=== PATIENT | female | born 2000 | race Caucasian/White ===

== ENCOUNTER 2022-01-16 16:25 | Emergency (ER) | payer MEDICAID ==
[2022-01-16] MEDS: Albuterol/Ipratropium 3.0-0.5 MG/3 ML Neb Soln NEB ONE ×3 (16:35→17:24)
[2022-01-16] MEDS: methylPREDNISolone Sodium Succinate 125 MG/2 ML SDV IM ONE (16:48)
[2022-01-16] MEDS: Albuterol 8 GM Inhaler INH ONE (17:24)
== END 2022-01-16 18:31 | disposition home or self-care (01) ==
LOC: MW.ED 16:25
DX: J45.901 Unspecified asthma with (acute) exacerbation (principal); Z88.8 Allergy status to other drugs, medicaments and biological substances
CPT/HCPCS: 96372; 99284; J2930; 99283; A9270-GY; J7620-GY

== ENCOUNTER 2022-02-15 22:26 | Emergency (ER) | payer MEDICAID, OTHER ==
[2022-02-15] MEDS ORDERED: Albuterol/Ipratropium 3.0-0.5 MG/3 ML Neb Soln NEB ONE (23:28)
[2022-02-15] MEDS ORDERED: methylPREDNISolone Sodium Succinate 125 MG/2 ML SDV IM ONE (23:28)
== END 2022-02-16 00:28 | disposition home or self-care (01) ==
LOC: MW.ED 22:26
DX: J38.3 Other diseases of vocal cords (principal); Z91.018 Allergy to other foods
CPT/HCPCS: 96372; 99283; J2930; J7620-GY

== ENCOUNTER 2022-03-04 01:54 | Emergency (ER) | payer MEDICAID ==
[2022-03-04] MEDS ORDERED: predniSONE 20 MG Tab PO STA (02:39)
== END 2022-03-04 03:08 | disposition home or self-care (01) ==
LOC: MW.ED 01:54
DX: T78.40XA Allergy, unspecified, initial encounter (principal); F17.210 Nicotine dependence, cigarettes, uncomplicated; Z88.8 Allergy status to other drugs, medicaments and biological substances
CPT/HCPCS: 99283; A9270

== ENCOUNTER 2022-04-01 10:54 | Emergency (ER) | payer SELFPAY | END 2022-04-01 11:15 | disposition home or self-care (01) | LOC: MW.ED 10:54 | DX: Z00.00 Encounter for general adult medical examination without abnormal findings (principal); Z91.018 Allergy to other foods | CPT/HCPCS: 99283 ==

== ENCOUNTER 2022-04-06 17:45 | Emergency (ER) | payer SELFPAY | END 2022-04-06 20:55 | disposition left against medical advice (07) | LOC: MW.ED 17:45 | DX: Z53.21 Procedure and treatment not carried out due to patient leaving prior to being seen by health care provider (principal) ==

== ENCOUNTER 2022-04-13 08:14 | Emergency (ER) | payer SELFPAY | END 2022-04-13 10:06 | disposition home or self-care (01) | LOC: MW.ED 08:14 | DX: O99.341 Other mental disorders complicating pregnancy, first trimester (principal); F41.9 Anxiety disorder, unspecified; O99.331 Smoking (tobacco) complicating pregnancy, first trimester; F17.210 Nicotine dependence, cigarettes, uncomplicated; Z76.5 Malingerer [conscious simulation]; Z3A.00 Weeks of gestation of pregnancy not specified | CPT/HCPCS: 99283 ==

== ENCOUNTER 2022-04-29 07:33 | Emergency (ER) | payer SELFPAY ==
[2022-04-29] MEDS ORDERED: Albuterol/Ipratropium 3.0-0.5 MG/3 ML Neb Soln NEB ONE (07:45)
== END 2022-04-29 09:10 | disposition home or self-care (01) ==
LOC: MW.ED 07:33
DX: R06.02 Shortness of breath (principal); F17.210 Nicotine dependence, cigarettes, uncomplicated; Z88.8 Allergy status to other drugs, medicaments and biological substances
CPT/HCPCS: 99283; 99285; J7620-GY

== ENCOUNTER 2022-05-09 06:28 | Emergency (ER) | payer MEDICAID ==
[2022-05-09] MEDS ORDERED: Sodium Chloride 0.9% 10 ML Syringe FLUSH PRN (06:47)
[2022-05-09] MEDS ORDERED: Sodium Chloride 0.9% 2.5 ML Syringe FLUSH PRN (06:47)
[2022-05-09] MEDS ORDERED: Sodium Chloride 0.9% 1,000 ML IV ONE (06:47)
[2022-05-09 07:15] LABS: POTASSIUM,K 3.6 mmol/L (3.5-5.1)
[2022-05-09] MEDS ORDERED: Ketorolac 30 MG/ML SDV IVPUSH ONE (09:04)
[2022-05-09] MEDS ORDERED: fentaNYL 50 MCG/ML SDV IVPUSH ONE (09:34)
[2022-05-09] MEDS ORDERED: Acetaminophen/HYDROcodone 325-10 MG Tab PO ONE (10:00)
== END 2022-05-09 10:16 | disposition home or self-care (01) ==
LOC: MW.ED 06:28
DX: O03.4 Incomplete spontaneous abortion without complication (principal); Z88.8 Allergy status to other drugs, medicaments and biological substances
CPT/HCPCS: 36415; 76817; 76817-26; 80053; 84702; 85025; 86900; 86901; 96374; 96375; 99284-25; A9270-GY; J1885; J3010; J3490; J7030

== ENCOUNTER 2022-06-01 16:49 | Emergency (ER) | payer MEDICAID ==
[2022-06-01 21:04] LABS: CARBON DIOXIDE,CO2 27.8 mmol/L (21.0-32.0); POTASSIUM,K 3.7 mmol/L (3.5-5.1)
== END 2022-06-01 22:14 | disposition home or self-care (01) ==
LOC: MW.ED 16:49
DX: O02.1 Missed abortion (principal); Z91.018 Allergy to other foods
CPT/HCPCS: 36415; 76830; 76830-26; 80053; 81001; 84702; 85025; 87086; 99283; 99284

== ENCOUNTER 2022-07-06 23:33 | Emergency (ER) | payer OTHER | END 2022-07-07 01:40 | disposition left against medical advice (07) | LOC: MW.ED 23:33 | DX: T78.1XXA Other adverse food reactions, not elsewhere classified, initial encounter (principal); Z53.21 Procedure and treatment not carried out due to patient leaving prior to being seen by health care provider ==

== ENCOUNTER 2022-08-06 19:57 | Emergency (ER) | payer MEDICAID ==
[2022-08-06 20:31] LABS: BASOPHILS ABSOLUTE AUTO 0.1 K/uL (0.0-0.1); BASOPHILS PERCENT AUTO 0.7 % (0.0-1.5); EOSINOPHILS ABSOLUTE AUTO 0.9 K/uL (0.0-0.7); EOSINOPHILS PERCENT AUTO 7.7 % (0.0-7.0); HEMATOCRIT 37.5 % (36.0-46.0); HEMOGLOBIN 12.7 g/dL (12.0-16.0); LYMPHOCYTES ABSOLUTE AUTO 3.3 K/uL (0.6-2.4); LYMPHOCYTES PERCENT AUTO 27.6 % (16.0-40.0); MEAN CORPUSCULAR HEMOGLOBIN 27.9 pg (27.0-32.0); MEAN CORPUSCULAR HGB CONC 33.9 g/dL (31.0-37.0); MEAN CORPUSCULAR VOLUME 82.2 fL (80.0-98.0); MONOCYTES ABSOLUTE AUTO 0.5 K/uL (0.0-0.8); MONOCYTES PERCENT AUTO 4.3 % (0.0-15.0); NEUTROPHILS ABSOLUTE AUTO 7.2 K/uL (1.4-5.7); NEUTROPHILS PERCENT AUTO 59.7 % (48.0-80.0); NRBC ABSOLUTE 0 K/uL; PLATELET COUNT,PLT 306 K/uL (150-400); RED BLOOD CELL COUNT 4.56 M/uL (4.30-5.90); WHITE BLOOD CELL COUNT,WBC 12.06 K/uL (4.0-11.0)
[2022-08-06] MEDS ORDERED: Cyclobenzaprine 10 MG Tab PO ONE (20:33)
[2022-08-06] MEDS ORDERED: Ketorolac 30 MG/ML SDV IM ONE (20:33)
[2022-08-06 21:03] LABS: A/G RATIO 1.1 (0.9-1.6); ALANINE AMINOTRANSFERASE,ALT 32 IU/L (14-63); ALBUMIN 3.7 g/dL (3.4-5.0); ALKALINE PHOSPHATASE 90 U/L (46-116); ASPARTATE AMNIOTRANSFERASE,AST 14 IU/L (15-37); BILIRUBIN TOTAL 0.4 mg/dL (0.2-1.0); BLOOD UREA NITROGEN,BUN 3 mg/dL (7.0-18.0); CALCIUM 8.7 mg/dL (8.5-10.1); CARBON DIOXIDE,CO2 26.5 mmol/L (21.0-32.0); CHLORIDE,CL 105 mmol/L (98-107); CREATININE 0.7 mg/dL (0.6-1.0); EST CRCL DRUG DOSING (CG) 91.32 mL/min; ESTIMATED GFR 126 mL/min (>60); GLUCOSE RANDOM 111 mg/dL (74-106); POTASSIUM,K 3.5 mmol/L (3.5-5.1); PROTEIN TOTAL,TP 7.1 g/dL (6.4-8.2); SODIUM,NA 143 mmol/L (136-145)
== END 2022-08-06 21:49 | disposition home or self-care (01) ==
LOC: MW.ED 19:57
DX: R07.89 Other chest pain (principal)
CPT/HCPCS: 36415; 71046; 80053; 84484; 84703; 85025; 93005; 96372; 99285; A9270; J1885; 93010; 99283

== ENCOUNTER 2022-08-11 12:46 | Emergency (ER) | payer SELFPAY | END 2022-08-11 15:17 | disposition home or self-care (01) | LOC: MW.ED 12:46 | DX: J45.909 Unspecified asthma, uncomplicated (principal); Z76.0 Encounter for issue of repeat prescription; Z88.8 Allergy status to other drugs, medicaments and biological substances | CPT/HCPCS: 99281; 99282 ==

== ENCOUNTER 2022-08-23 00:59 | Emergency (ER) | payer MEDICAID | END 2022-08-23 02:54 | disposition left against medical advice (07) | LOC: MW.ED 00:59 | DX: Z53.21 Procedure and treatment not carried out due to patient leaving prior to being seen by health care provider (principal) ==

== ENCOUNTER 2022-09-15 12:41 | Emergency (ER) | payer MEDICAID | END 2022-09-15 13:14 | disposition home or self-care (01) | LOC: MW.ED 12:41 | DX: Z76.0 Encounter for issue of repeat prescription (principal); J38.3 Other diseases of vocal cords; R06.02 Shortness of breath; Z72.0 Tobacco use; Z91.018 Allergy to other foods | CPT/HCPCS: 99281; 99283 ==

== ENCOUNTER 2022-10-03 21:53 | Emergency (ER) | payer MEDICAID | END 2022-10-03 22:28 | disposition home or self-care (01) | LOC: MW.ED 21:53 | DX: Z76.0 Encounter for issue of repeat prescription (principal); Z91.018 Allergy to other foods | CPT/HCPCS: 99281; 99283 ==

== ENCOUNTER 2022-10-27 11:14 | Emergency (ER) | payer MEDICAID | END 2022-10-27 12:08 | disposition home or self-care (01) | LOC: MW.ED 11:14 | DX: H66.92 Otitis media, unspecified, left ear (principal); J02.9 Acute pharyngitis, unspecified; F17.210 Nicotine dependence, cigarettes, uncomplicated; Z88.8 Allergy status to other drugs, medicaments and biological substances | CPT/HCPCS: 99282; 99283 ==

== ENCOUNTER 2022-11-03 15:33 | Emergency (ER) | payer MEDICAID | END 2022-11-03 19:59 | disposition home or self-care (01) | LOC: MW.ED 15:33 | DX: Z48.02 Encounter for removal of sutures (principal) | CPT/HCPCS: 99281 ==

== ENCOUNTER 2022-11-15 11:09 | Emergency (ER) | payer MEDICAID ==
[2022-11-15] MEDS ORDERED: Ondansetron 4 MG/2 ML SDV IVPUSH ONE (11:23)
[2022-11-15] MEDS ORDERED: Sodium Chloride 0.9% 1,000 ML IV ONE (11:23)
[2022-11-15] MEDS ORDERED: Dicyclomine 10 MG Cap PO ONE (11:23)
[2022-11-15 11:54] LABS: BASOPHILS ABSOLUTE AUTO 0.1 K/uL (0.0-0.1); BASOPHILS PERCENT AUTO 0.6 % (0.0-1.5); EOSINOPHILS PERCENT AUTO 7.1 % (0.0-7.0); HEMATOCRIT 39.7 % (36.0-46.0); HEMOGLOBIN 13.1 g/dL (12.0-16.0); LYMPHOCYTES ABSOLUTE AUTO 2.7 K/uL (0.6-2.4); LYMPHOCYTES PERCENT AUTO 18.4 % (16.0-40.0); MEAN CORPUSCULAR HEMOGLOBIN 27.3 pg (27.0-32.0); MEAN CORPUSCULAR VOLUME 82.9 fL (80.0-98.0); MONOCYTES ABSOLUTE AUTO 0.9 K/uL (0.0-0.8); MONOCYTES PERCENT AUTO 6.1 % (0.0-15.0); NEUTROPHILS ABSOLUTE AUTO 9.9 K/uL (1.4-5.7); NEUTROPHILS PERCENT AUTO 67.8 % (48.0-80.0); NRBC ABSOLUTE 0 K/uL; PLATELET COUNT,PLT 355 K/uL (150-400); RED BLOOD CELL COUNT 4.79 M/uL (4.30-5.90); WHITE BLOOD CELL COUNT,WBC 14.53 K/uL (4.0-11.0)
[2022-11-15 12:21] LABS: APPEARANCE,URINE CLOUDY; COLOR,URINE YELLOW; GLUCOSE,URINE NEGATIVE (NEGATIVE); KETONES,URINE 15 mg/dL (NEGATIVE); LEUKOCYTE ESTERASE,URINE TRACE (NEGATIVE); NITRITE,URINE NEGATIVE (NEGATIVE); OCCULT BLOOD,URINE TRACE-INTACT (NEGATIVE); PH,URINE 5.5 (5.0-8.0); PROTEIN,URINE NEGATIVE (NEGATIVE); UROBILINOGEN,URINE 0.2 EU/dL (<2.0)
[2022-11-15 12:28] LABS: BILIRUBIN,URINE MODERATE (NEGATIVE)
[2022-11-15 12:28] LABS: A/G RATIO 0.9 (0.9-1.6); ALBUMIN 3.7 g/dL (3.4-5.0); BILIRUBIN TOTAL 0.7 mg/dL (0.2-1.0); CARBON DIOXIDE,CO2 24.2 mmol/L (21.0-32.0); CREATININE 0.8 mg/dL (0.6-1.0); EST CRCL DRUG DOSING (CG) 79.9 mL/min; POTASSIUM,K 3.8 mmol/L (3.5-5.1); PROTEIN TOTAL,TP 7.7 g/dL (6.4-8.2)
[2022-11-15 12:42] LABS: BACTERIA,URINE MANY (NEGATIVE); EPITHELIAL CELLS,URINE MANY (NONE-FEW); HYALINE CASTS,URINE FEW (0-2/LPF); MUCUS,URINE MANY (NONE-MOD); RBC,URINE 0-3 (0-2/HPF); SQUAMOUS EPITHELIAL CELLS,UR MANY; WBC,URINE 0-2 (0-5/HPF)
== END 2022-11-15 16:10 | disposition home or self-care (01) ==
LOC: MW.ED 11:09
DX: R19.7 Diarrhea, unspecified (principal); R11.0 Nausea; R10.9 Unspecified abdominal pain; Z91.048 Other nonmedicinal substance allergy status
CPT/HCPCS: 36415; 74176; 74176-26; 80053; 81001; 81025; 85025; 96361; 96374; 99283; 99284-25; A9270-GY; J2405; J7030

== ENCOUNTER 2022-11-22 21:13 | Emergency (ER) | payer MEDICAID | END 2022-11-23 00:06 | disposition home or self-care (01) | LOC: MW.ED 21:13 | DX: K64.8 Other hemorrhoids (principal); Z91.09 Other allergy status, other than to drugs and biological substances | CPT/HCPCS: 99282; 99283 ==

== ENCOUNTER 2022-12-01 16:04 | Emergency (ER) | payer MEDICAID | END 2022-12-01 17:03 | disposition home or self-care (01) | LOC: MW.ED 16:04 | DX: K92.1 Melena (principal); F17.210 Nicotine dependence, cigarettes, uncomplicated; Z79.899 Other long term (current) drug therapy; Z88.8 Allergy status to other drugs, medicaments and biological substances | CPT/HCPCS: 99282; 99283 ==

== ENCOUNTER 2022-12-12 17:01 | Emergency (ER) | payer MEDICAID ==
[2022-12-12] MEDS ORDERED: Albuterol/Ipratropium 3.0-0.5 MG/3 ML Neb Soln NEB ONE (17:02)
== END 2022-12-13 00:22 | disposition left against medical advice (07) ==
LOC: MW.ED 17:01
DX: Z53.21 Procedure and treatment not carried out due to patient leaving prior to being seen by health care provider (principal)

== ENCOUNTER 2022-12-26 12:10 | Emergency (ER) | payer MEDICAID | END 2022-12-26 12:49 | disposition home or self-care (01) | LOC: MW.ED 12:10 | DX: Z76.0 Encounter for issue of repeat prescription (principal); Z91.048 Other nonmedicinal substance allergy status | CPT/HCPCS: 99281; 99283 ==

== ENCOUNTER 2022-12-30 13:08 | Emergency (ER) | payer MEDICAID | END 2022-12-30 14:22 | disposition home or self-care (01) | LOC: MW.ED 13:08 | DX: R21 Rash and other nonspecific skin eruption (principal); Z79.899 Other long term (current) drug therapy; Z88.8 Allergy status to other drugs, medicaments and biological substances | CPT/HCPCS: 99282 ==

== ENCOUNTER 2023-01-15 15:55 | Emergency (ER) | payer MEDICAID | END 2023-01-15 16:42 | disposition home or self-care (01) | LOC: MW.ED 15:55 | DX: Z76.0 Encounter for issue of repeat prescription (principal); J38.3 Other diseases of vocal cords; Z72.0 Tobacco use; Z91.018 Allergy to other foods | CPT/HCPCS: 99281; 99283 ==

== ENCOUNTER 2023-01-19 10:58 | Emergency (ER) | payer MEDICAID ==
[2023-01-19] MEDS ORDERED: Tetracaine HCl/PF 0.5% 4 ML Bottle EYELF STA (11:48)
== END 2023-01-19 12:52 | disposition home or self-care (01) ==
LOC: MW.ED 10:58
DX: S05.02XA Injury of conjunctiva and corneal abrasion without foreign body, left eye, initial encounter (principal); Z91.09 Other allergy status, other than to drugs and biological substances; X58.XXXA Exposure to other specified factors, initial encounter
CPT/HCPCS: 99283; J3490